=== PATIENT | female | born 1985 | race Caucasian/White ===

== ENCOUNTER 2019-04-29 07:13 | Inpatient (IN) | payer BC ==
[2019-04-29] MEDS ORDERED: Ondansetron 4 MG/2 ML SDV IVPUSH PRN (07:23)
[2019-04-29] MEDS ORDERED: Nalbuphine 10 MG/ML Syringe IVPUSH PRN (07:23)
[2019-04-29] MEDS ORDERED: Sodium Chloride 0.9% 10 ML Syringe FLUSH PRN (07:23)
[2019-04-29] MEDS ORDERED: Oxytocin/Lactated Ringers 10 UNIT/1,000 ML BAG IV SCH ×2 (07:30→08:45)
[2019-04-29] MEDS: Lactated Ringers 1,000 ML IV SCH ×2 (08:49→11:33)
[2019-04-29] MEDS ORDERED: Bupivacaine 0.25% 10 ML SDV ONE ×2 (09:00)
--- NOTE | 2019-04-29 09:19 | PCM.PREANE ---
Preanesthetic Assessment - Anesthesia/Transfusion/Family Hx Anesthesia History: Prior Anesthesia Without Reaction Family History of Anesthesia Reaction: No Transfusion History: No Prior Transfusion(s) Intubation History: Unknown - Review of Systems General: No Symptoms Pulmonary: No Symptoms Cardiovascular: No Symptoms Gastrointestinal: No Symptoms Neurological: No Symptoms Other: Reports: None - Physical Assessment NPO Status Date: 04/29/19 NPO Status Time: 09:09 Height: 1.63 m Weight: 94.03 kg ASA Class: 2 Mental Status: Alert & Oriented x3 Airway Class: Mallampati = 1 Dentition: Reports: Normal Dentition Thyro-Mental Finger Breadths: 4 Mouth Opening Finger Breadths: 4 ROM/Head Extension: Full Lungs: Clear to Auscultation, Normal Respiratory Effort Cardiovascular: Regular Rate, Regular Rhythm - Lab Values: Laboratory Last Values WBC 9.79 K/mm3 (3.98-10.04) 04/29/19 07:56 RBC 4.33 M/mm3 (3.98-5.22) 04/29/19 07:56 Hgb 12.9 gm/dl (11.2-15.7) 04/29/19 07:56 Hct 38.3 % (34.1-44.9) 04/29/19 07:56 MCV 88.5 fl (79.4-94.8) 04/29/19 07:56 MCH 29.8 pg (25.6-32.2) 04/29/19 07:56 MCHC 33.7 g/dl (32.2-35.5) 04/29/19 07:56 RDW Std Deviation 42.5 fL (36.4-46.3) 04/29/19 07:56 Plt Count 200 K/mm3 (182-369) 04/29/19 07:56 MPV 11.0 fl (9.4-12.3) 04/29/19 07:56 Neut % (Auto) 73.4 % (34.0-71.1) H 04/29/19 07:56 Lymph % (Auto) 18.9 % (19.3-51.7) L 04/29/19 07:56 [place] % (Auto) 6.4 % (4.7-12.5) 04/29/19 07:56 Eos % (Auto) 0.9 (0.7-5.8) 04/29/19 07:56 Baso % (Auto) 0.2 % (0.1-1.2) 04/29/19 07:56 Neut # (Auto) 7.18 K/mm3 (1.56-6.13) H 04/29/19 07:56 Lymph # (Auto) 1.85 K/mm3 (1.18-3.74) 04/29/19 07:56 [place] # (Auto) 0.63 K/mm3 (0.24-0.36) H 04/29/19 07:56 Eos # (Auto) 0.09 K/mm3 (0.04-0.36) 04/29/19 07:56 Baso # (Auto) 0.02 K/mm3 (0.01-0.08) 04/29/19 07:56 - Allergies Allergies/Adverse Reactions: Allergies Allergy/AdvReac Type Severity Reaction Status Date / Time Sulfa (Sulfonamide Allergy Bronchospas Verified 04/29/19 07:22 Antibiotics) ms - Acknowledgements Anesthesia Type Planned: Epidural Pt an Appropriate Candidate for the Planned Anesthesia: Yes Alternatives and Risks of Anesthesia Discussed w Pt/Guardian: Yes Pt/Guardian Understands and Agrees with Anesthesia Plan: Yes PreAnesthesia Questionnaire - Past Health History Medical/Surgical History: Denies 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: , Spontaneous - Past Surgical History Musculoskeletal Surgical History: Reports: Other (See Below) Other Musculoskeletal Surgeries/Procedures:: Surgery on left elbow - HOME MEDS Home Medications: Home Meds Amoxicillin 500 mg PO BID 02/10/18 [History] - CURRENT (IN HOUSE) MEDS Current Meds: Current Medications Lactated Ringer's (Ringers, Lactated) 1,000 mls @ 100 mls/hr IV ASDIRECTED EDDY Last Admin: 04/29/19 08:49 Dose: 100 mls/hr Oxytocin/Lactated Ringer's (Pitocin In Lr 10 Units/1,000 Ml) 10 unit in 1,000 mls @ 100 mls/hr IV .CONTINUOUS EDDY Oxytocin/Lactated Ringer's (Pitocin In Lr 10 Units/1,000 Ml) 10 unit in 1,000 mls @ 12 mls/hr IV TITRATE EDDY; Protocol Last Admin: 04/29/19 08:53 Dose: 2 munits/min, 12 mls/hr Nalbuphine HCl (Nubain) 10 mg IVPUSH Q2H PRN PRN Reason: Pain Ondansetron HCl (Zofran) 4 mg IVPUSH Q4H PRN PRN Reason: Nausea/Vomiting Sodium Chloride (Saline Flush) 10 ml FLUSH ASDIRECTED PRN PRN Reason: Keep Vein Open
[2019-04-29] MEDS ORDERED: ePHEDrine 50 MG/ML SDV IVPUSH PRN (10:34)
[2019-04-29] MEDS ORDERED: fentaNYL 100 MCG/2 ML SDV EPIDUR PRN (10:34)
[2019-04-29] MEDS ORDERED: diphenhydrAMINE 50 MG/ML SDV IVPUSH PRN (10:34)
[2019-04-29] MEDS ORDERED: fentaNYL/Bupivacaine/NS 2 MCG-0.125% 250 ML EPIDUR PRN ×2 (10:34→10:58)
--- NOTE | 2019-04-29 10:51 | PCM.LDHP ---
L&D History of Present Illness - General Date of Service: 04/29/19 Admit Problem/Dx: Patient Status Order with Admit Dx/Problem 04/29/19 07:25 Patient Status [ADT] Routine Admission Diagnosis/Problem Admission Diagnosis/Problem 04/29/19 10:42 Thomas is a 33-year-old 3 para 1011 white female is admitted for induction of labor at 41-2/7 weeks gestational age. RUBY 04/20/2019 as based upon a certain LMP of 07/14/2018 and supported by at least 4 ultrasounds done during the course the . 04/29/19 10:43 Source of Information: Patient History Limitations: Reports: No Limitations - History of Present Illness Introduction:: Thomas is a 33-year-old 3 para 1011 white female is admitted for induction of labor at 41-2/7 weeks gestational age. RUBY 04/20/2019 as based upon a certain LMP of 07/14/2018 and supported by at least 4 ultrasounds done during the course the .The induction of labor, procedure, risks, benefits, alternatives of care including For natural onset of labor all discussed with patient. She appears understand and wishes to proceed. Plan is to do artificial rupture membranes with possible. Pitocin as necessary prior to that if indicated. Para 4 be draining history 3 para 1011. Patient's menarche age approximate 12. Cycles every month. She is not using any control at time of conception. Certain last menstrual periods started 07/14/2018. Patient's previous pregnancies included: 1. A first trimester miscarriage 2. Male born 11/03/2015 at 40 weeks gestational age after 12 hours labor7 lbs. 4 oz.NSVDepidural usedchild's name is Norman course. Patient had her first visit on 09/26/2018. She was seen on a regular basis. She made normal fundal height growth during course the . Weight gain was from 181-207 pounds for a 26 pound gain. Her vital signs remained stable throughout the course. Is group B strep negative. She plans to breast-feed. She declined genetic evaluation. Flu shot was received on 01/22/2019. Patient had her T dap given on 02/21/2019. Laboratory testing and : Blood is AB+ with negative and by screen. Hemoglobin was 13.7 g/dL and platelets were 244,000 on first visit evaluation. He is rubella immune. RPR is nonreactive. Urine culture was negative. Hepatitis B surface antigen and HIV assays were both negative. Chlamydia and gonorrhea tests were both negative. Second trimester hemoglobin was 13.9 g/dL and platelets were 270,000. One-hour GTT was 101normal. Was negative. RPR done 01/22/2019 was negative. Allergies sulfur which causes difficulty in swallowing and wheezing. Medications: 1. Zofran 4 mg 1 tablet every 4 hours when necessary for nausea. 2. vitamins 1 daily. 3. Unisom when necessary for sleep 4. Vitamin B complex daily. Past medical history: 1. History of recurrent UTIs. 2. Fracture left arm as a child. 3. Miscarriage first trimester Past surgical history: 1. Elbow arthroplasty 1998 Past family history: Mother is alive and well. Father is alive age 59. Has had cataract surgery, heart disease. Did have a heart attack and a stent was placed. 2 sisters alive. One half sister with diabetes. Maternal grandmother is alive but with dementia and is on blood thinners. Maternal grandfather is age's 90. from old age. Paternal grandmother is alive but suffers from obesity and diabetes. Paternal grandfathers health history not known. There is no family history of cancer, bleeding or clotting abnormality is, anesthesia-related problems or -related issues. Social history: Patient is . 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 She has attended some college. is [employer]. She does not use any significant loss of alcohol, drugs or tobacco. Review of systems: In general patient has no complaints. Skin: Negative Lungs: No infectious symptoms or shortness of breath Cardiovascular: No chest pain or exercise intolerance Breasts: Changes associated with .. GI: Negative : Increase in fundal height secondary to . Musculoskeletal: Negative Neurological: Negative In general the patient is well-developed, well-nourished, pleasant female of stated age in no acute distress. On last evaluation in clinic on 04/24/2019 patient's blood pressure is 110/68. Weight was 207 pounds. Pregravid weight was 181 pounds. Height is 5 feet 5 inches. Pregravid body mass index is 28.6. heart rate on last evaluation in clinic was 135 bpm. Skin is warm dry without lesions. HEENT, neck and back within normal limits. Lungs are clear with good breath sounds in all lung lerner. Cardiovascular exam shows regular and rhythm without murmurs. Abdomen is gravid with fundal height on last evaluation clinic at 41 cm. Baby in vertex presentation by Mateo maneuvers. Genital per digital exam on last evaluation in clinic showed 2+ and there is dilation, 85% effacement, very soft, mid position, -3 station.. Extremities and neurological exam are grossly within normal limits. 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: , Spontaneous - Past Surgical History Musculoskeletal Surgical History: Reports: Other (See Below) Other Musculoskeletal Surgeries/Procedures:: Surgery on left elbow Social & Family History - Family History Family Medical History: Noncontributory - Tobacco Use Smoking Status *Q: Never Smoker Second Hand Smoke Exposure: No - Caffeine Use Caffeine Use: Reports: Coffee - Recreational Drug Use Recreational Drug Use: No H&P Review of Systems - Review of Systems: Review Of Systems: See Below L&D Exam - Exam Exam: See Below - Vital Signs Vital Signs: Last Vital Signs Temp 36.7 C 04/29/19 07:25 Pulse Resp 14 04/29/19 07:25 BP 124/80 04/29/19 07:25 Pulse Ox 98 04/29/19 07:25 Weight: 94.03 kg - Patient Data Lab Results Last 24 hrs: Laboratory Results - last 24 hr 04/29/19 Range/Units 07:56 WBC 9.79 (3.98-10.04) K/mm3 RBC 4.33 (3.98-5.22) M/mm3 Hgb 12.9 (11.2-15.7) gm/dl Hct 38.3 (34.1-44.9) % MCV 88.5 (79.4-94.8) fl MCH 29.8 (25.6-32.2) pg MCHC 33.7 (32.2-35.5) g/dl RDW Std Deviation 42.5 (36.4-46.3) fL Plt Count 200 (182-369) K/mm3 MPV 11.0 (9.4-12.3) fl Neut % (Auto) 73.4 H (34.0-71.1) % Lymph % (Auto) 18.9 L (19.3-51.7) % [place] % (Auto) 6.4 (4.7-12.5) % Eos % (Auto) 0.9 (0.7-5.8) Baso % (Auto) 0.2 (0.1-1.2) % Neut # (Auto) 7.18 H (1.56-6.13) K/mm3 Lymph # (Auto) 1.85 (1.18-3.74) K/mm3 [place] # (Auto) 0.63 H (0.24-0.36) K/mm3 Eos # (Auto) 0.09 (0.04-0.36) K/mm3 Baso # (Auto) 0.02 (0.01-0.08) K/mm3 Result Diagrams: 04/29/19 07:56 Problem List Initiated/Reviewed/Updated: Yes Orders Last 24hrs: Active Orders 24 hr Category Date Time Status Patient Status [ADT] Routine ADT 04/29/19 07:25 Active Activity as Tolerated [RC] PFP Care 04/29/19 07:25 Active Communication Order [RC] ASDIRECTED Care 04/29/19 07:25 Active Heart Tones [RC] ASDIRECTED Care 04/29/19 07:26 Active Non Stress Test [RC] PER UNIT ROUTINE Care 04/29/19 07:25 Active Notify Provider [RC] ASDIRECTED Care 04/29/19 10:34 Active Notify Provider [RC] PFP Care 04/29/19 07:25 Active Notify Provider [RC] PRN Care 04/29/19 07:25 Active Peripheral IV Care [RC] . DIRECTED Care 04/29/19 07:26 Active Vital Signs [RC] PER UNIT ROUTINE Care 04/29/19 07:25 Active Regular Diet [DIET] Diet 04/29/19 Breakfast Active BLOOD BANK HOLD SPECIMEN [BBK] Stat Lab 04/29/19 07:23 Ordered RAPID PLASMA REAGIN,RPR [CHEM] Routine Lab 04/29/19 07:25 Ordered Bupivicaine/fentaNYL/NS [fentaNYL/Bupivacaine/NS 2 MCG- Med 04/29/19 10:34 Ordered 0.125% 250 ML] DOSE ml EPIDUR CONTINUOUS PRN Lactated Ringers [Ringers, Lactated] 1,000 ml Med 04/29/19 07:30 Active IV ASDIRECTED Nalbuphine [Nubain] Med 04/29/19 07:23 Active 10 mg IVPUSH Q2H PRN Ondansetron [Zofran] Med 04/29/19 07:23 Active 4 mg IVPUSH Q4H PRN Oxytocin/Lactated Ringers [Pitocin in LR 10 Units/1,000 Med 04/29/19 07:30 Active ML] 10 unit in 1,000 ml IV .CONTINUOUS Oxytocin/Lactated Ringers [Pitocin in LR 10 Units/1,000 Med 04/29/19 08:45 Active ML] 10 unit in 1,000 ml IV TITRATE Sodium Chloride 0.9% [Saline Flush] Med 04/29/19 07:23 Active 10 ml FLUSH ASDIRECTED PRN diphenhydrAMINE [Benadryl] Med 04/29/19 10:34 Ordered 25 mg IVPUSH Q6H PRN ePHEDrine [ePHEDrine sulfate] Med 04/29/19 10:34 Ordered 5 mg IVPUSH ASDIRECTED PRN fentaNYL [Sublimaze] Med 04/29/19 10:34 Ordered 100 mcg EPIDUR Q3H PRN Electronic Heart Tones Ext w TOCO [WOMSER] Oth 04/29/19 07:25 Ordered Routine Electronic Heart Tones Internal [WOMSER] Per Unit Oth 04/29/19 07:25 Ordered Routine Peripheral IV Insertion Adult [OM.PC] Routine Oth 04/29/19 07:25 Ordered Resuscitation Status Routine Resus Stat 04/29/19 07:23 Ordered Medication Orders Diphenhydramine HCl (Benadryl) 25 mg IVPUSH Q6H PRN PRN Reason: pruritis Ephedrine Sulfate (Ephedrine Sulfate) 5 mg IVPUSH ASDIRECTED PRN PRN Reason: Hypotension Fentanyl (Sublimaze) 100 mcg EPIDUR Q3H PRN PRN Reason: Pain Fentanyl/Bupivacaine HCl (Fentanyl/Bupivacaine/Ns 2 Mcg-0.125% 250 Ml) ml EPIDUR CONTINUOUS PRN PRN Reason: Pain Lactated Ringer's (Ringers, Lactated) 1,000 mls @ 100 mls/hr IV ASDIRECTED EDDY Last Admin: 04/29/19 08:49 Dose: 100 mls/hr Oxytocin/Lactated Ringer's (Pitocin In Lr 10 Units/1,000 Ml) 10 unit in 1,000 mls @ 100 mls/hr IV .CONTINUOUS EDDY Oxytocin/Lactated Ringer's (Pitocin In Lr 10 Units/1,000 Ml) 10 unit in 1,000 mls @ 12 mls/hr IV TITRATE EDDY; Protocol Last Titration: 04/29/19 09:45 Dose: 8 munits/min, 48 mls/hr Titration: 04/29/19 09:30 Dose: 6 munits/min, 36 mls/hr Titration: 04/29/19 09:12 Dose: 4 munits/min, 24 mls/hr Admin: 04/29/19 08:53 Dose: 2 munits/min, 12 mls/hr Nalbuphine HCl (Nubain) 10 mg IVPUSH Q2H PRN PRN Reason: Pain Ondansetron HCl (Zofran) 4 mg IVPUSH Q4H PRN PRN Reason: Nausea/Vomiting Sodium Chloride (Saline Flush) 10 ml FLUSH ASDIRECTED PRN PRN Reason: Keep Vein Open Assessment/Plan Comment:: 1. 41-2/7 week intrauterine , admitted for medical induction of labor for postdates. 2. Group B strep screen is negative. 3. Patient plans for epidural for labor and analgesia. 4. Patient plans to breast-feed. 5. RPR shows immunity. She had her flu immunization and her T dap during . Plan: 1. Artificial rupture membranes/Pitocin induction of labor. 2. Routine labor care including monitoring etc. 3. Epidural for labor and analgesia 4. Support breast-feeding decision 5. Routine admission labs including CBC and RPR.
[2019-04-29] MEDS ORDERED: Bupivacaine/fentaNYL/NS 100 ML Bag EPIDUR PRN (11:01)
--- NOTE | 2019-04-29 12:28 | PCM.SN ---
- Free Text/Narrative Note: Thomas is a 33-year-old 3 para 1011 white female is admitted for induction of labor at 41-2/7 weeks gestational age. RUBY 04/20/2019 as based upon a certain LMP of 07/14/2018 and supported by at least 4 ultrasounds done during the course the . Patient was induced with Pitocin initially followed by artificial rupture membranes. Had epidural for labor analgesia. Over the course of approximately 8 hours she went to complete cervical dilation. She delivered a viable, ruiz, male with Apgars of 8 and 9, weight of 3710 g (8 lbs. 3 oz.), a length of 21.0 inches in a direct occiput anterior position. He was placed on mom's abdomen. Nose and mouth were bulb suctioned. Pitocin was increased to 500 mL prior to facilitate increase in uterine tone and decreased likelihood of bleeding. She had a second-degree laceration which was repaired with 3-0 Monocryl in a routine fashion.No analgesia was used for perineal anesthesia for the repair. Patient tolerated this well. Placenta delivered in a Giordano dictation, appeared intact and complete and was discarded per patient desire. Estimated blood loss was 100 mL. Patient plans to breast-feed. Condition: Good
[2019-04-29] MEDS ORDERED: Witch Hazel Medicated Pads 40/Jar TOP PRN (13:48)
[2019-04-29] MEDS ORDERED: Benzocaine/Menthol 20%-0.5% Spray 56 GM Canister TOP PRN (13:48)
[2019-04-29] MEDS ORDERED: Acetaminophen 325 MG Tab PO PRN (13:48)
[2019-04-29] MEDS ORDERED: Docusate Sodium 100 MG Cap PO PRN (13:48)
[2019-04-29] MEDS ORDERED: Ibuprofen 600 MG Tab PO PRN (13:48)
--- NOTE | 2019-04-30 08:02 | PCM48HPAN ---
Post Anesthesia Note - EVALUATION WITHIN 48HRS OF ANESTHETIC Vital Signs in Normal Range: Yes Patient Participated in Evaluation: Yes Respiratory Function Stable: Yes Airway Patent: Yes Cardiovascular Function Stable: Yes Hydration Status Stable: Yes Pain Control Satisfactory: Yes Nausea and Vomiting Control Satisfactory: Yes Mental Status Recovered: Yes Vital Signs: Last Vital Signs Temp 97.9 F 04/29/19 20:08 Pulse 64 04/30/19 03:21 Resp 16 04/30/19 03:21 BP 135/95 H 04/30/19 03:21 Pulse Ox 98 04/30/19 03:21
[2019-04-30] MEDS ORDERED: Prenatal Multivitamin with Calcium/Folic Acid/Iron Tab PO SCH (09:00)
--- NOTE | 2019-04-30 11:30 | PCM.DCSUM1 ---
Discharge Summary - Hospital Course Free Text/Narrative:: Thomas is a 33-year-old 3 para 1011 white female is admitted for induction of labor at 41-2/7 weeks gestational age. RUBY 04/20/2019 as based upon a certain LMP of 07/14/2018 and supported by at least 4 ultrasounds done during the course the . Patient was induced with Pitocin initially followed by artificial rupture membranes. Had epidural for labor analgesia. Over the course of approximately 8 hours she went to complete cervical dilation. She delivered a viable, ruiz, male with Apgars of 8 and 9, weight of 3710 g (8 lbs. 3 oz.), a length of 21.0 inches in a direct occiput anterior position. He was placed on mom's abdomen. Nose and mouth were bulb suctioned. Pitocin was increased to 500 mL prior to facilitate increase in uterine tone and decreased likelihood of bleeding. She had a second-degree laceration which was repaired with 3-0 Monocryl in a routine fashion.No analgesia was used for perineal anesthesia for the repair. Patient tolerated this well. Placenta delivered in a Giordano dictation, appeared intact and complete and was discarded per patient desire. Estimated blood loss was 100 Patient is doing well. She is ambulating well, voiding without problems. She is nursing without concerns. Her vital signs are stable. She plans to breast-feed. Diagnosis: Stroke: No - Discharge Data Discharge Date: 04/30/19 Discharge Disposition: Home, Self-Care 01 Condition: Good - Referral to Home Health Primary Care Physician: Sudeep Chairez MD - Patient Instructions Diet: Regular Diet as Tolerated (Nursing diet was increased calories and calcium is recommended.) Activity: As Tolerated (No intercourse or tampons until bleeding resolves) Driving: May Drive Today Showering/Bathing: May Shower (may take a bath) Notify Provider of: Fever, Increased Pain, Swelling and Redness, Nausea and/or Vomiting - Discharge Plan Home Medications: Home Meds [id number]/Iron Fumarate/FA/DSS [ 19 Tablet] 1 each PO DAILY 04/29/19 [ History] Acetaminophen [Tylenol] 650 mg PO Q4H PRN tablet 04/30/19 [Rx] Referrals: Sudeep Chairez MD [Primary Care Provider] - (Return to clinicDr. Chairez or Nessa tayurse practitioner in 2 weeks.) - Discharge Summary/Plan Comment DC Time >30 min.: No Discharge Summary/Plan Comment: Discharge instructions: 1. Discharge home 2. Diet, activity and follow-up discussed with patient. Recommend nursing diet with increased calories and calcium. 3. Precautions given concern increased pain, bleeding, temperature, signs/ symptoms of DVT/PE. 4. Medications per home medication was printed, discussed with and given to the patient. 5. Return to clinic-Dr. Chairez or Nessa paredes-nurse practitioner-[facility] in 2 weeks. Diagnosis: Term -delivered Condition: Good - Patient Data Vitals - Most Recent: Last Vital Signs Temp 36.5 C 04/30/19 07:31 Pulse 71 04/30/19 07:31 Resp 14 04/30/19 07:31 BP 123/92 H 04/30/19 07:31 Pulse Ox 98 04/30/19 07:31 Weight - Most Recent: 94.03 kg I&O - Last 24 hours: Intake & Output 04/29/19 04/30/19 04/30/19 22:59 06:59 14:59 Intake Total 60 300 Output Total 1000 Balance -940 300 Med Orders - Current: Current Medications Acetaminophen (Tylenol) 650 mg PO Q4H PRN PRN Reason: mild pain or fever Benzocaine/Menthol (Dermoplast Pain Relief [place]) 0 gm TOP ASDIRECTED PRN PRN Reason: Perineal Comfort Measure Last Admin: 04/29/19 14:05 Dose: 1 can Docusate Sodium (Colace) 100 mg PO BID PRN PRN Reason: Constipation Ibuprofen (Motrin) 600 mg PO Q4H PRN PRN Reason: Mild pain or fever Last Admin: 04/30/19 00:06 Dose: 600 mg Prenat Multivit/[place]/Iron/Folic Ac ( Plus Iron) 1 each PO DAILY EDDY Last Admin: 04/30/19 08:37 Dose: 1 each Witch Sailaja (Tucks) 1 pad TOP ASDIRECTED PRN PRN Reason: Pain Last Admin: 04/29/19 14:04 Dose: 1 tub Discontinued Medications Bupivacaine HCl (Sensorcaine-Mpf 0.25%) 10 ml .ROUTE .STK-MED ONE Stop: 04/29/19 09:01 Bupivacaine HCl (Sensorcaine-Mpf 0.25%) 10 ml .ROUTE .[facility]-MED ONE Stop: 04/29/19 09:01 Diphenhydramine HCl (Benadryl) 25 mg IVPUSH Q6H PRN PRN Reason: pruritis Ephedrine Sulfate (Ephedrine Sulfate) 5 mg IVPUSH ASDIRECTED PRN PRN Reason: Hypotension Fentanyl (Sublimaze) 100 mcg EPIDUR Q3H PRN PRN Reason: Pain Last Admin: 04/29/19 10:47 Dose: 100 mcg Fentanyl/Bupivacaine HCl (Fentanyl/Bupivacaine/Ns 2 Mcg-0.125% 250 Ml) 250 ml EPIDUR CONTINUOUS PRN PRN Reason: Pain Fentanyl/Bupivacaine HCl (Fentanyl/Bupivacaine/Ns 2 Mcg-0.125% 250 Ml) ml EPIDUR CONTINUOUS PRN PRN Reason: Pain Fentanyl/Bupivacaine HCl (Fentanyl/Bupivacaine/Ns 2 Mcg-0.125% 100 Ml) 100 ml EPIDUR CONTINUOUS PRN PRN Reason: Pain Last Admin: 04/29/19 12:33 Dose: 100 ml Lactated Ringer's (Ringers, Lactated) 1,000 mls @ 100 mls/hr IV ASDIRECTED EDDY Last Admin: 04/29/19 11:33 Dose: 100 mls/hr Oxytocin/Lactated Ringer's (Pitocin In Lr 10 Units/1,000 Ml) 10 unit in 1,000 mls @ 100 mls/hr IV .CONTINUOUS EDDY Oxytocin/Lactated Ringer's (Pitocin In Lr 10 Units/1,000 Ml) 10 unit in 1,000 mls @ 12 mls/hr IV TITRATE EDDY; Protocol Last Titration: 04/29/19 11:17 Dose: 6 munits/min, 36 mls/hr Nalbuphine HCl (Nubain) 10 mg IVPUSH Q2H PRN PRN Reason: Pain Ondansetron HCl (Zofran) 4 mg IVPUSH Q4H PRN PRN Reason: Nausea/Vomiting Sodium Chloride (Saline Flush) 10 ml FLUSH ASDIRECTED PRN PRN Reason: Keep Vein Open
[2019-04-30 14:01] VITALS: BP 132/76; PULSE 79
== END 2019-04-30 13:42 | disposition home or self-care (01) | DRG 560 ==
LOC: UNDOADMOB 07:13 → JD.OB 07:13 → OBSVTOIN 12:01 → JD.OB 12:02
PROVIDERS: ADMIT Obstetrics & Gynecology; ATTEND Obstetrics & Gynecology
PROC: 10E0XZZ Delivery of Products of Conception, External Approach (ICD-10-PCS; principal; 2019-04-29)
PROC: 10907ZC Drainage of Amniotic Fluid, Therapeutic from Products of Conception, Via Natural or Artificial Opening (ICD-10-PCS; 2019-04-29)
PROC: 3E033VJ Introduction of Other Hormone into Peripheral Vein, Percutaneous Approach (ICD-10-PCS; 2019-04-29)
PROC: 0KQM0ZZ Repair Perineum Muscle, Open Approach (ICD-10-PCS; 2019-04-29)
PROC: 3E0R3BZ Introduction of Anesthetic Agent into Spinal Canal, Percutaneous Approach (ICD-10-PCS; 2019-04-29)
PROC: 00HU33Z Insertion of Infusion Device into Spinal Canal, Percutaneous Approach (ICD-10-PCS; 2019-04-29)
DX: O48.0 Post-term pregnancy (principal); Z37.0 Single live birth; Z3A.41 41 weeks gestation of pregnancy; O70.1 Second degree perineal laceration during delivery
CPT/HCPCS: 01967; 36415; 51701; 59025; 59409; 85025; A9270-GY; J2590; J3010; J3490; J7120

== ENCOUNTER 2021-05-29 16:00 | Inpatient (IN) | payer BC ==
[~2021-05-29 16:00] MED LIST: Lidocaine 1.5% with EPINEPHrine 1:200,000 5 ML Amp ONE
[2021-05-29] MEDS ORDERED: Nalbuphine 10 MG/1 ML Vial IVPUSH PRN (16:33)
[2021-05-29] MEDS ORDERED: Lidocaine 1% 50 ML MDV INJECT ONE (16:33)
[2021-05-29] MEDS ORDERED: Sodium Chloride 0.9% 10 ML Syringe FLUSH PRN (16:33)
[2021-05-29] MEDS ORDERED: Ondansetron 4 MG/2 ML SDV IVPUSH PRN (16:33)
[2021-05-29] MEDS ORDERED: Oxytocin/Lactated Ringers 10 UNIT/1,000 ML BAG IV SCH ×3 (16:45→21:10)
[2021-05-29] MEDS ORDERED: Lactated Ringers 1,000 ML IV SCH (16:45)
[2021-05-29] MEDS ORDERED: Bupivacaine/fentaNYL/NS 100 ML Bag EPIDUR PRN (17:01)
[2021-05-29] MEDS ORDERED: diphenhydrAMINE 50 MG/ML SDV IVPUSH PRN (17:01)
[2021-05-29] MEDS ORDERED: fentaNYL 100 MCG/2 ML SDV EPIDUR PRN (17:01)
[2021-05-29] MEDS ORDERED: ePHEDrine 50 MG/ML SDV IVPUSH PRN (17:01)
[2021-05-29] MEDS ORDERED: Sodium Chloride 0.9% 10 ML Syringe FLUSH SCH (21:00)
[2021-05-29] MEDS ORDERED: Benzocaine/Menthol 20%-0.5% Spray 78 GM Cannister TOP PRN (21:10)
[2021-05-29] MEDS ORDERED: Magnesium Hydroxide 400 MG/5 ML Susp 30 ML Cup PO PRN (21:10)
[2021-05-29] MEDS ORDERED: Acetaminophen 325 MG Tab PO PRN (21:10)
[2021-05-29] MEDS ORDERED: Witch Hazel Medicated Pads 40/Jar TOP PRN (21:10)
[2021-05-29] MEDS ORDERED: Docusate Sodium 100 MG Cap PO PRN (21:10)
[2021-05-29] MEDS ORDERED: Hydrocortisone Acetate 25 MG Supp RECTAL PRN (21:10)
[2021-05-29] MEDS: Ibuprofen 600 MG Tab PO PRN (21:52)
[2021-05-30] MEDS: Ibuprofen 600 MG Tab PO PRN (08:38)
[2021-05-30] MEDS ORDERED: Prenatal Multivitamin with Calcium/Folic Acid/Iron Tab PO SCH (09:00)
[2021-05-30 18:35] VITALS: BP 103/63; PULSE 72
== END 2021-05-30 20:30 | disposition home or self-care (01) | DRG 560 ==
LOC: JD.OBCHECK 16:00 → JD.OB 16:01 → JD.OBCHECK 16:33 → OBSVTOIN 17:47 → JD.OB 18:51
PROVIDERS: ADMIT Obstetrics & Gynecology; ATTEND Obstetrics & Gynecology
PROC: 10E0XZZ Delivery of Products of Conception, External Approach (ICD-10-PCS; principal; 2021-05-29)
PROC: 0KQM0ZZ Repair Perineum Muscle, Open Approach (ICD-10-PCS; 2021-05-29)
PROC: 3E0R3BZ Introduction of Anesthetic Agent into Spinal Canal, Percutaneous Approach (ICD-10-PCS; 2021-05-29)
PROC: 00HU33Z Insertion of Infusion Device into Spinal Canal, Percutaneous Approach (ICD-10-PCS; 2021-05-29)
DX: O77.0 Labor and delivery complicated by meconium in amniotic fluid (principal); Z37.0 Single live birth; O98.52 Other viral diseases complicating childbirth; U07.1 COVID-19; O70.1 Second degree perineal laceration during delivery; Z3A.39 39 weeks gestation of pregnancy; Z88.2 Allergy status to sulfonamides
CPT/HCPCS: 36415; 59025; 59409; 85025; 86592; 86850; 86900; 86901; A9270-GY; J2590; J3010; J7120; U0002